=== PATIENT | male | born 1960 | race Caucasian/White ===

== ENCOUNTER 2018-06-25 04:30 | Inpatient (IN) | payer MEDICAID ==
[~2018-06-25] VITALS: Ht 167.6 cm; Wt 70.9 kg
[~2018-06-25 04:30] MED LIST: PROP10TA10 PO
[2018-06-25] MEDS ORDERED: PANTOPRAZOLE SODIUM 40 MG/VIAL IV STA (06:17)
[2018-06-25] MEDS ORDERED: OCTREOTIDE ACETATE 50 MCG/ML 1ML IV STA (06:17)
[2018-06-25] MEDS ORDERED: SODIUM CHLORIDE 0.9% 1,000 ML IV ONE ×2 (06:17→17:30)
[2018-06-25] MEDS ORDERED: ONDANSETRON HCL 4MG/2ML INJ IV ONE (06:30)
[2018-06-25 06:51] LABS: CHLORIDE 108 mEq/L (98-107)
[2018-06-25 06:54] LABS: INR 1.7; PROTHROMBIN TIME 17.1 sec (9.1-11.1)
[2018-06-25 07:01] LABS: HEMATOCRIT. 33.9 % (42.0-52.0); HEMOGLOBIN. 10.8 g/dL (14.0-18.0); MEAN CORPUSCULAR HEMOGLOBIN 29.2 pg (28.0-32.0); MEAN CORPUSCULAR VOLUME 91.5 fL (80.0-94.0); MEAN PLATELET VOLUME 8.9 fl (7.4-10.4); PLATELET 72 x1000/uL (130-400); RED CELL DISTRIBUTION WIDTH 16.6 % (11.6-14.6)
[2018-06-25 07:47] LABS: PLATELET ESTIMATE DECREASED
[2018-06-25] MEDS ORDERED: ONDANSETRON HCL 4MG/2ML INJ IV PRN ×2 (08:15→17:15)
[2018-06-25 10:00] VITALS: BP 101/69
[2018-06-25] MEDS ORDERED: OCTREOTIDE 1,000 MCG in SODIUM CHLORIDE 0.9% 98 ML IV PRN (11:00)
[2018-06-25 12:00] VITALS: BP 100/59
[2018-06-25] MEDS: DEXT 5%/0.45% NACL 1000ML 1,000 ML IV SCH ×2 (13:56→21:09)
[2018-06-25 14:00] VITALS: BP 102/60
[2018-06-25 14:26] LABS: HEMATOCRIT 29.7 % (42.0-52.0); HEMOGLOBIN 9.5 g/dL (14.0-18.0)
[2018-06-25 14:51] LABS: TOTAL IRON BINDING CAPACITY 276 ug/dL (250-450)
[2018-06-25 15:47] LABS: FOLIC ACID (FOLATE) SERUM 13.2 ng/mL (>5.38)
[2018-06-25] MEDS ORDERED: PROPOFOL 200MG/20ML VIAL IV ONE (16:25)
[2018-06-25] MEDS ORDERED: MIDAZOLAM HCL 5 MG/5 ML VIAL ONE (16:25)
[2018-06-25] MEDS ORDERED: LIDOCAINE HCL/PF 1% 10 MG/ML 5ML VIAL ONE (16:26)
[2018-06-25] MEDS ORDERED: HYDROMORPHONE HCL/PF 2MG/ML CPJ IV PRN (17:15)
[2018-06-25] MEDS ORDERED: FLUMAZENIL 0.1 MG/ML 5ML VIAL IV ONE (17:16)
[2018-06-25 18:00] VITALS: BP 119/68
[2018-06-25] MEDS: PANTOPRAZOLE SODIUM 40 MG/VIAL IV SCH (19:58)
[2018-06-25 20:00] VITALS: BP 105/64
[2018-06-25 21:00] LABS: HEMATOCRIT 22.9 % (42.0-52.0); HEMOGLOBIN 7.5 g/dL (14.0-18.0)
[2018-06-25] MEDS: OCTREOTIDE 1,000 MCG in SODIUM CHLORIDE 0.9% 98 ML IV SCH (21:54)
[2018-06-25 22:00] VITALS: BP 108/63
[2018-06-26] VITALS (23 sets, daily range): BP systolic 97–141; BP diastolic 47–76
[2018-06-26 00:42] LABS: HEMATOCRIT 24.7 % (42.0-52.0); HEMOGLOBIN 7.8 g/dL (14.0-18.0)
[2018-06-26] MEDS: DEXT 5%/0.45% NACL 1000ML 1,000 ML IV SCH ×2 (06:44→15:40)
[2018-06-26 06:59] LABS: INR 1.7; PARTIAL THROMBOPLASTIN TIME 36.1 sec (23.4-31.0); PROTHROMBIN TIME 17.3 sec (9.1-11.1)
[2018-06-26 07:10] LABS: CHLORIDE 112 mEq/L (98-107)
[2018-06-26] MEDS: PANTOPRAZOLE SODIUM 40 MG/VIAL IV SCH ×2 (08:29→18:54)
[2018-06-26 09:38] LABS: HEMATOCRIT. 26.1 % (42.0-52.0); HEMOGLOBIN. 8.6 g/dL (14.0-18.0); MEAN CORPUSCULAR HEMOGLOBIN 29.7 pg (28.0-32.0); MEAN CORPUSCULAR VOLUME 90.1 fL (80.0-94.0); MEAN PLATELET VOLUME 8.4 fl (7.4-10.4); RED BLOOD CELL COUNT 2.89 mill/uL (4.7-6.1); RED CELL DISTRIBUTION WIDTH 15.9 % (11.6-14.6)
[2018-06-26 10:30] LABS: PLATELET 38 x1000/uL (130-400)
[2018-06-26 10:36] LABS: PLATELET ESTIMATE MARKEDLY DECREASED
[2018-06-26 13:23] LABS: HEMATOCRIT 26.7 % (42.0-52.0); HEMOGLOBIN 8.8 g/dL (14.0-18.0)
[2018-06-26] MEDS: FERROUS SULFATE 325MG TABLET PO SCH (18:50)
[2018-06-26] MEDS: FUROSEMIDE 40MG/4ML VIAL IVP SCH (18:50)
[2018-06-26 19:27] LABS: HEMATOCRIT 26.4 % (42.0-52.0); HEMOGLOBIN 8.6 g/dL (14.0-18.0)
[2018-06-26] MEDS: ASCORBIC ACID 500 MG TABLET PO SCH (22:11)
[2018-06-26] MEDS: LACTULOSE 20G/30ML UDC PO SCH (22:11)
[2018-06-27] VITALS (23 sets, daily range): BP systolic 80–122; BP diastolic 48–69
[2018-06-27] MEDS: DEXT 5%/0.45% NACL 1000ML 1,000 ML IV SCH ×3 (02:29→22:34)
[2018-06-27] MEDS: LACTULOSE 20G/30ML UDC PO SCH ×3 (05:47→21:22)
[2018-06-27 06:47] LABS: HEMATOCRIT. 26.8 % (42.0-52.0); HEMOGLOBIN. 8.8 g/dL (14.0-18.0); MEAN CORPUSCULAR HEMOGLOBIN 30.1 pg (28.0-32.0); MEAN CORPUSCULAR VOLUME 91.5 fL (80.0-94.0); MEAN PLATELET VOLUME 8.8 fl (7.4-10.4); PLATELET 56 x1000/uL (130-400); RED BLOOD CELL COUNT 2.93 mill/uL (4.7-6.1); RED CELL DISTRIBUTION WIDTH 15.8 % (11.6-14.6)
[2018-06-27 07:07] LABS: CHLORIDE 107 mEq/L (98-107)
[2018-06-27 07:13] LABS: INR 1.6; PARTIAL THROMBOPLASTIN TIME 34.8 sec (23.4-31.0); PROTHROMBIN TIME 16.2 sec (9.1-11.1)
[2018-06-27] MEDS ORDERED: SODIUM BICARBONATE 4% (2.4MEQ) 5ML VIAL IV ONE (07:49)
[2018-06-27] MEDS ORDERED: LIDOCAINE HCL 1% 20ML VIAL (Pyxis) INJ ONE (07:49)
[2018-06-27] MEDS: FUROSEMIDE 40MG/4ML VIAL IVP SCH (09:10)
[2018-06-27] MEDS: PANTOPRAZOLE SODIUM 40 MG/VIAL IV SCH ×2 (09:28→17:12)
[2018-06-27] MEDS: FERROUS SULFATE 325MG TABLET PO SCH ×3 (09:29→17:12)
[2018-06-27] MEDS: ASCORBIC ACID 500 MG TABLET PO SCH ×2 (09:29→21:22)
[2018-06-27] MEDS ORDERED: POTASSIUM CHLORIDE INJ 40 MEQ in DEXT 5% WATER 250 ML IV NR (09:30)
[2018-06-27 10:43] LABS: PLATELET ESTIMATE DECREASED
[2018-06-27] MEDS: OCTREOTIDE 1,000 MCG in SODIUM CHLORIDE 0.9% 98 ML IV SCH ×2 (10:50→12:18)
[2018-06-28] VITALS (9 sets, daily range): BP systolic 109–127; BP diastolic 52–76
[2018-06-28 06:05] LABS: CHLORIDE 110 mEq/L (98-107)
[2018-06-28] MEDS: LACTULOSE 20G/30ML UDC PO SCH (06:09)
[2018-06-28 06:27] LABS: HEMATOCRIT. 27.4 % (42.0-52.0); HEMOGLOBIN. 8.8 g/dL (14.0-18.0); MEAN CORPUSCULAR HEMOGLOBIN 29.7 pg (28.0-32.0); MEAN PLATELET VOLUME 9.3 fl (7.4-10.4); PLATELET 52 x1000/uL (130-400); RED BLOOD CELL COUNT 2.98 mill/uL (4.7-6.1); RED CELL DISTRIBUTION WIDTH 16.3 % (11.6-14.6)
[2018-06-28] MEDS ORDERED: POTASSIUM CHLORIDE 20MEQ TABLET SR PO SCH (08:00)
[2018-06-28] MEDS: ASCORBIC ACID 500 MG TABLET PO SCH (08:25)
[2018-06-28] MEDS: FERROUS SULFATE 325MG TABLET PO SCH ×2 (08:25→12:58)
[2018-06-28] MEDS: PANTOPRAZOLE SODIUM 40 MG/VIAL IV SCH (08:25)
[2018-06-28] MEDS: DEXT 5%/0.45% NACL 1000ML 1,000 ML IV SCH (08:26)
[2018-06-28] MEDS ORDERED: THIAMINE HCL 100MG TABLET PO SCH (09:00)
[2018-06-28] MEDS ORDERED: MULTIVITAMINS,THER W-MINERALS TABLET PO SCH (09:00)
[2018-06-28 10:19] LABS: PLATELET ESTIMATE DECREASED
[2018-06-28] MEDS ORDERED: LACTULOSE 20G/30ML UDC PO STA (10:39)
[2018-06-28] MEDS: OCTREOTIDE 1,000 MCG in SODIUM CHLORIDE 0.9% 98 ML IV SCH (12:58)
[2018-06-28] MEDS ORDERED: LACTULOSE 20G/30ML UDC PO SCH (17:00)
[2018-06-29 04:15] LABS: HIV SCREEN 4G Non Reactive (Non Reactive)
== END 2018-06-28 14:32 | disposition home or self-care (01) | DRG 280 ==
LOC: ER 04:30 → 5EST 07:49 → EDBEDREQ 07:51 → ENRESERV 08:39
PROVIDERS: ADMIT Internal Medicine; ATTEND Internal Medicine
PROC: 06L38CZ Occlusion of Esophageal Vein with Extraluminal Device, Via Natural or Artificial Opening Endoscopic (ICD-10-PCS; principal; 2018-06-25 15:30)
PROC: 30233N1 Transfusion of Nonautologous Red Blood Cells into Peripheral Vein, Percutaneous Approach (ICD-10-PCS; 2018-06-26)
PROC: 30233R1 Transfusion of Nonautologous Platelets into Peripheral Vein, Percutaneous Approach (ICD-10-PCS; 2018-06-26)
PROC: 0W9G3ZZ Drainage of Peritoneal Cavity, Percutaneous Approach (ICD-10-PCS; 2018-06-27)
PROC: 30233L1 Transfusion of Nonautologous Fresh Plasma into Peripheral Vein, Percutaneous Approach (ICD-10-PCS; 2018-06-27)
PROC: 30233K1 Transfusion of Nonautologous Frozen Plasma into Peripheral Vein, Percutaneous Approach (ICD-10-PCS; 2018-06-27)
DX: K70.31 Alcoholic cirrhosis of liver with ascites (principal); I85.11 Secondary esophageal varices with bleeding; E43 Unspecified severe protein-calorie malnutrition; D61.818 Other pancytopenia; J90 Pleural effusion, not elsewhere classified; D68.4 Acquired coagulation factor deficiency; B18.2 Chronic viral hepatitis C; E87.8 Other disorders of electrolyte and fluid balance, not elsewhere classified; F10.21 Alcohol dependence, in remission; K44.9 Diaphragmatic hernia without obstruction or gangrene; K76.6 Portal hypertension; K80.20 Calculus of gallbladder without cholecystitis without obstruction; Z68.25 Body mass index [BMI] 25.0-25.9, adult
CPT/HCPCS: 36415; 49083; 71045; 74018; 76700; 80048; 80076; 82040; 82140; 82607; 82728; 82746; 83036; 83540; 83550; 83615; 84145; 85014; 85018; 86850; 86900; 86920; 86927; 87389; 88108; 88312; 96374; 99285; C9113; J1940; J2250; J2354; J2405; J2704; J3480; J3490; J7030; J7050; J7060; P9016; P9017; P9034

== ENCOUNTER 2018-08-24 12:07 | Inpatient (IN) | payer MEDICAID ==
[~2018-08-24] VITALS: Ht 167.6 cm; Wt 72.6 kg
[2018-08-24] MEDS ORDERED: lactulose (12:22)
[2018-08-24] MEDS ORDERED: vitamin d (12:22)
[2018-08-24 19:43] LABS: CHLORIDE 108 mEq/L (98-107)
[2018-08-24 19:44] LABS: HEMATOCRIT. 34.5 % (42.0-52.0); HEMOGLOBIN. 10.9 g/dL (14.0-18.0); MEAN CORPUSCULAR HEMOGLOBIN 26.3 pg (28.0-32.0); MEAN CORPUSCULAR VOLUME 83.7 fL (80.0-94.0); PLATELET 52 x1000/uL (130-400); RED BLOOD CELL COUNT 4.12 mill/uL (4.7-6.1); RED CELL DISTRIBUTION WIDTH 17.5 % (11.6-14.6)
[2018-08-24 19:46] LABS: ETHANOL BLOOD 20 mg/dL
[2018-08-24 19:51] LABS: INR 1.6; PARTIAL THROMBOPLASTIN TIME 37.2 sec (23.4-31.0); PROTHROMBIN TIME 16.4 sec (9.1-11.1)
[2018-08-24 20:33] LABS: CLARITY URINE CLEAR (CLEAR); COLOR URINE DARK YELLOW (YELLOW); KETONES URINE NEGATIVE (NEGATIVE); LEUKOCYTE ESTERASE URINE NEGATIVE (NEGATIVE); NITRITE URINE NEGATIVE (NEGATIVE); OCCULT BLOOD URINE NEGATIVE (NEGATIVE); PROTEIN URINE NEGATIVE (NEGATIVE); SPECIFIC GRAVITY URINE 1.012 (1.005-1.030)
[2018-08-24 22:07] LABS: PLATELET ESTIMATE MARKEDLY DECREASED
[2018-08-25 03:11] VITALS: BP 112/66
[2018-08-25] MEDS ORDERED: ONDANSETRON HCL 4MG/2ML INJ IV PRN (06:00)
[2018-08-25] MEDS: MORPHINE SULFATE 4 MG/ML CPJ (NOT FOR IM USE) IV PRN ×2 (10:55→15:14)
[2018-08-25] MEDS ORDERED: SODIUM CHLORIDE 0.9% 1,000 ML IV SCH (11:15)
[2018-08-25 11:26] LABS: HEMATOCRIT. 33.4 % (42.0-52.0); HEMOGLOBIN. 10.7 g/dL (14.0-18.0); MEAN CORPUSCULAR HEMOGLOBIN 26.4 pg (28.0-32.0); MEAN CORPUSCULAR VOLUME 82.6 fL (80.0-94.0); MEAN PLATELET VOLUME 8.6 fl (7.4-10.4); RED BLOOD CELL COUNT 4.05 mill/uL (4.7-6.1); RED CELL DISTRIBUTION WIDTH 17.6 % (11.6-14.6)
[2018-08-25 11:32] LABS: CHLORIDE 109 mEq/L (98-107); PLATELET 50 x1000/uL (130-400)
[2018-08-25 12:00] VITALS: BP 106/66
[2018-08-25 16:44] VITALS: BP 110/69
[2018-08-26 11:49] LABS: PLATELET ESTIMATE MARKEDLY DECREASED
== END 2018-08-25 17:51 | disposition home or self-care (01) ==
LOC: ER 12:31 → 6EST 21:18 → ENRESERV 08-25 02:26
PROVIDERS: ADMIT Internal Medicine; ATTEND Internal Medicine
PROC: 0W9G3ZZ Drainage of Peritoneal Cavity, Percutaneous Approach (ICD-10-PCS; principal; 2018-08-25)
DX: K74.60 Unspecified cirrhosis of liver (principal); D61.818 Other pancytopenia; E87.8 Other disorders of electrolyte and fluid balance, not elsewhere classified; E44.0 Moderate protein-calorie malnutrition; R18.8 Other ascites; E83.51 Hypocalcemia; F10.10 Alcohol abuse, uncomplicated
CPT/HCPCS: 36415; 49083; 71045; 80048; 99285; J2270; J7030

== ENCOUNTER 2018-09-17 19:19 | Inpatient (IN) | payer MEDICAID ==
[~2018-09-17] VITALS: Ht 165.1 cm; Wt 74.8 kg
[~2018-09-17 19:19] MED LIST changes: +lactulose; +vitamin d
[2018-09-18 00:58] LABS: HEMATOCRIT. 33.9 % (42.0-52.0); HEMOGLOBIN. 10.8 g/dL (14.0-18.0); MEAN CORPUSCULAR HEMOGLOBIN 26.4 pg (28.0-32.0); MEAN CORPUSCULAR VOLUME 82.7 fL (80.0-94.0); MEAN PLATELET VOLUME 8.4 fl (7.4-10.4); PLATELET 55 x1000/uL (130-400)
[2018-09-18 01:00] LABS: CHLORIDE 107 mEq/L (98-107)
[2018-09-18 01:08] LABS: INR 1.6; PARTIAL THROMBOPLASTIN TIME 34.8 sec (23.4-31.0); PROTHROMBIN TIME 15.7 sec (9.1-11.1)
[2018-09-18] MEDS ORDERED: MORPHINE SULFATE 10 MG/ML CPJ IV ONE (03:15)
[2018-09-18 03:34] LABS: PLATELET ESTIMATE DECREASED
[2018-09-18] MEDS ORDERED: DIPHENHYDRAMINE 50MG/ML VIAL IV PRN (07:15)
[2018-09-18] MEDS ORDERED: DOCUSATE SODIUM 100MG CAPSULE PO PRN (07:15)
[2018-09-18] MEDS ORDERED: IPRATROPIUM/ALBUTEROL 0.5-3(2.5)MG/3ML NEB INH PRN (07:15)
[2018-09-18] MEDS ORDERED: GUAIFENESIN 200MG/10ML SUGAR FREE UDC PO PRN (07:15)
[2018-09-18] MEDS ORDERED: HYDROCODONE/ACETAMINOPHEN 5/325MG TABLET PO PRN (07:15)
[2018-09-18] MEDS ORDERED: ENOXAPARIN 40MG/0.4ML SYR SUBCUT SCH (07:15)
[2018-09-18] MEDS ORDERED: LORAZEPAM 2MG/ML CPJ IV PRN (07:15)
[2018-09-18] MEDS ORDERED: ONDANSETRON HCL 4MG/2ML INJ IV PRN (07:15)
[2018-09-18] MEDS ORDERED: ACETAMINOPHEN 325MG TABLET PO PRN (07:15)
[2018-09-18] MEDS ORDERED: NA PHOS,M-B/NA PHOS,DI-BA ENEMA 118ML PR PRN (07:15)
[2018-09-18] MEDS ORDERED: MAGNESIUM/ALUMINUM HYDROXIDE/SIMETHICONE 30ML UDC PO PRN (07:15)
[2018-09-18] MEDS ORDERED: CLONIDINE 0.1MG TABLET PO PRN (07:15)
[2018-09-18 10:23] VITALS: BP 103/67
[2018-09-18 10:25] VITALS: BP 103/67
[2018-09-18] MEDS ORDERED: MORPHINE SULFATE 4 MG/ML CPJ (NOT FOR IM USE) IV PRN (11:00)
[2018-09-18 12:00] VITALS: BP 100/69
[2018-09-18 12:13] LABS: CHLORIDE 106 mEq/L (98-107)
[2018-09-18] MEDS: FUROSEMIDE 40MG/4ML VIAL IV SCH (12:29)
[2018-09-18] MEDS: SPIRONOLACTONE 50MG TABLET PO SCH (12:29)
[2018-09-18 16:00] VITALS: BP 110/66
[2018-09-18] MEDS: DOCUSATE SODIUM 100MG CAPSULE PO SCH (17:18)
[2018-09-18] MEDS: FERROUS SULFATE 325MG TABLET PO SCH (17:18)
[2018-09-18 20:00] VITALS: BP 112/64
[2018-09-18] MEDS: PROPRANOLOL HCL 10MG TABLET PO SCH (20:40)
[2018-09-19] VITALS: BP 96/61
[2018-09-19 04:00] VITALS: BP 101/67
[2018-09-19 06:57] LABS: CHLORIDE 108 mEq/L (98-107)
[2018-09-19 07:17] LABS: LDL CHOLESTEROL 36 mg/dL (5-100)
[2018-09-19 07:18] LABS: T4 FREE 1.41 ng/dL (0.76-1.46)
[2018-09-19 07:19] LABS: HDL CHOLESTEROL 31 mg/dL (40-59)
[2018-09-19 07:52] VITALS: BP 100/65
[2018-09-19 07:59] VITALS: BP 100/65
[2018-09-19 08:11] LABS: HEMATOCRIT. 33.9 % (42.0-52.0); HEMOGLOBIN. 10.8 g/dL (14.0-18.0); MEAN CORPUSCULAR VOLUME 82.1 fL (80.0-94.0); PLATELET 59 x1000/uL (130-400); RED BLOOD CELL COUNT 4.13 mill/uL (4.7-6.1); RED CELL DISTRIBUTION WIDTH 18.6 % (11.6-14.6)
[2018-09-19] MEDS: SPIRONOLACTONE 50MG TABLET PO SCH (08:40)
[2018-09-19] MEDS: FERROUS SULFATE 325MG TABLET PO SCH (08:40)
[2018-09-19] MEDS: FUROSEMIDE 40MG/4ML VIAL IV SCH (08:40)
[2018-09-19] MEDS: DOCUSATE SODIUM 100MG CAPSULE PO SCH (08:41)
[2018-09-19] MEDS: PROPRANOLOL HCL 10MG TABLET PO SCH (08:41)
[2018-09-19 11:18] LABS: PLATELET ESTIMATE DECREASED
== END 2018-09-19 12:00 | disposition home or self-care (01) | DRG 280 ==
LOC: ER 19:19 → 8WST 09-18 02:22 → EDBEDREQ 09-18 02:30 → EDBEDREQTM 09-18 02:30 → ENRESERV 09-18 08:17
PROVIDERS: ADMIT Internal Medicine; ATTEND Internal Medicine
PROC: 0W9G3ZZ Drainage of Peritoneal Cavity, Percutaneous Approach (ICD-10-PCS; principal; 2018-09-18)
DX: K70.31 Alcoholic cirrhosis of liver with ascites (principal); E43 Unspecified severe protein-calorie malnutrition; D61.818 Other pancytopenia; D68.9 Coagulation defect, unspecified; E87.70 Fluid overload, unspecified; I10 Essential (primary) hypertension; K42.9 Umbilical hernia without obstruction or gangrene; B19.20 Unspecified viral hepatitis C without hepatic coma; Z68.27 Body mass index [BMI] 27.0-27.9, adult; Z87.891 Personal history of nicotine dependence
CPT/HCPCS: 36415; 49083; 71045; 80048; 80061; 83880; 84439; 84443; 84484; 93005; 99285; J1940; J2270

== ENCOUNTER → 2018-10-30 | Day surgery (SDC) | payer MEDICAID | END | disposition home or self-care (01) | LOC: RAD 12:46 | PROVIDERS: ATTEND Internal Medicine Gastroenterology | DX: K70.31 Alcoholic cirrhosis of liver with ascites (principal); B18.2 Chronic viral hepatitis C | CPT/HCPCS: 49083; J3490 ==

== ENCOUNTER 2018-11-04 11:20 | Emergency (ER) | payer MEDICAID ==
[~2018-11-04] VITALS: Ht 167.6 cm; Wt 70.0 kg
[2018-11-04 12:20] VITALS: BP 100/65
[2018-11-04] MEDS ORDERED: MUPIROCIN 2% OINT 22GM TOP STA (12:30)
== END 2018-11-04 12:54 | disposition left against medical advice (07) ==
LOC: ER 12:21
DX: R18.8 Other ascites (principal); D64.9 Anemia, unspecified; Z98.890 Other specified postprocedural states
CPT/HCPCS: 99283